=== PATIENT | female | born 1965 | race African-American/Black ===

== ENCOUNTER 2017-04-22 10:11 | Emergency (ER) | payer OTHER ==
[~2017-04-22] VITALS: Ht 172.7 cm; Wt 124.9 kg
[2017-04-22 11:07] LABS: HEMATOCRIT 41.3 % (36.0-46.0); HEMOGLOBIN 14.1 G/DL (11.9-15.5); MCH 31.9 PG (29.0-34.0); MCHC 34.1 G/DL (30.0-36.0); MCV 93.4 FL (83-99); PLATELET COUNT 201 K/uL (156-360); RBC DIS.WIDTH-CV 13.4 % (11.8-14.6); RBC DIS.WIDTH-SD 45.8 % (39-53); RED BLOOD COUNT 4.42 M/uL (3.80-5.20); WHITE BLOOD COUNT 5.5 K/uL (4.1-10.2)
[2017-04-22 11:15] LABS: CHLORIDE 107 mEq/L (99-109); SODIUM 142 mEq/L (136-147)
[2017-04-22 11:17] LABS: GLUCOSE 103 mg/dL (70-99)
[2017-04-22 11:20] LABS: CREATININE 0.9 mg/dL (0.6-1.3); GFR ESTIMATE (CALCULATED) > 59 mL/min/
[2017-04-22 11:21] LABS: UREA NITROGEN (BUN) 11 mg/dL (9-23)
[2017-04-22] MEDS ORDERED: ZITHROMAX Z-PA250 MG PO (13:07)
[2017-04-22] MEDS ORDERED: DELTASONE20 M1 PO (13:07)
[2017-04-22 14:31] VITALS: BP 133/69
== END 2017-04-22 14:33 | disposition home or self-care (01) ==
LOC: EME 10:11
DX: J44.0 Chronic obstructive pulmonary disease with (acute) lower respiratory infection (principal); J20.9 Acute bronchitis, unspecified; J45.901 Unspecified asthma with (acute) exacerbation; F32.9 Major depressive disorder, single episode, unspecified; I10 Essential (primary) hypertension; F17.200 Nicotine dependence, unspecified, uncomplicated
CPT/HCPCS: 71046; 80048; 85027; 94640; 94640 76; 99281; 99284

== ENCOUNTER 2017-11-28 15:12 | Emergency (ER) | payer OTHER ==
[~2017-11-28] VITALS: Ht 172.7 cm; Wt 119.6 kg
[~2017-11-28 15:12] MED LIST: DELTASONE20 M1 PO; ZITHROMAX Z-PA250 MG PO
[2017-11-28 16:10] LABS: BASOPHIL (%) 0.2 % (0-1); EOSINOPHIL COUNT 0.3 K/uL (0-0.3); HEMATOCRIT 38.2 % (36.0-46.0); IMMATURE GRANULOCYTE (%) 0.3 % (0.0-0.7); LYMPHOCYTE (%) 27.1 % (15-42); LYMPHOCYTE COUNT 1.8 K/uL (1.0-2.8); MCV 94.1 FL (83-99); MONOCYTE (%) 9.4 % (3-12); MONOCYTE COUNT 0.6 K/uL (0-0.8); NEUTROPHIL COUNT 3.8 K/uL (1.8-6.4); PLATELET COUNT 224 K/uL (156-360); RBC DIS.WIDTH-CV 13.2 % (11.8-14.6); RBC DIS.WIDTH-SD 46.4 % (39-53); RED BLOOD COUNT 4.06 M/uL (3.80-5.20); WHITE BLOOD COUNT 6.5 K/uL (4.1-10.2)
[2017-11-28 16:18] LABS: ALBUMIN 3.9 g/dL (3.2-4.8); CHLORIDE 110 mEq/L (99-109); POTASSIUM 3.9 mEq/L (3.7-5.4); SODIUM 144 mEq/L (136-147)
[2017-11-28 16:20] LABS: GLUCOSE 93 mg/dL (70-99); TOTAL PROTEIN 6.5 g/dL (6.4-8.3)
[2017-11-28 16:22] LABS: TOTAL BILIRUBIN 0.3 mg/dL (0.0-1.0)
[2017-11-28 16:24] LABS: ALKALINE PHOSPHATASE 92 IU/L (3-129); CREATININE 0.9 mg/dL (0.6-1.3); GFR ESTIMATE (CALCULATED) > 59 mL/min/
[2017-11-28 16:25] LABS: UREA NITROGEN (BUN) 14 mg/dL (9-23)
[2017-11-28 16:26] LABS: AST (GOT) 21 IU/L (2-34)
[2017-11-28 16:27] LABS: ALT (GPT) 19 IU/L (3-49)
[2017-11-28 16:33] LABS: QUANTITATIVE HCG < 4.0 MIU/ML
[2017-11-28 16:36] LABS: MONOSPOT (MONONUCLEOSIS SEROL) NEGATIVE
[2017-11-28 17:08] LABS: THYROTROPIN (TSH) 0.69 MIU/L (0.4-5.5)
[2017-11-28 17:54] VITALS: BP 148/80
== END 2017-11-28 17:55 | disposition home or self-care (01) ==
LOC: EME 15:12
PROVIDERS: Physician Assistant
DX: R59.1 Generalized enlarged lymph nodes (principal); R07.0 Pain in throat; Z85.71 Personal history of Hodgkin lymphoma; I10 Essential (primary) hypertension; F17.200 Nicotine dependence, unspecified, uncomplicated
CPT/HCPCS: 71046; 80053; 84443; 84702; 85025; 86308; 99281; 99284